=== PATIENT | female | born 1960 | race Caucasian/White ===

== ENCOUNTER 2020-10-30 15:18 | Outpatient (REF) | payer BC, SELFPAY | END 2020-10-30 15:19 | disposition home or self-care (01) | LOC: HO.LAB 15:18 | PROVIDERS: Visit Provider Internal Medicine | DX: Z20.828 Contact with and (suspected) exposure to other viral communicable diseases (principal) | CPT/HCPCS: C9803; U0003 ==

== ENCOUNTER 2023-06-03 13:06 | Outpatient (AMB) | payer BC, SELFPAY ==
--- NOTE | 2023-06-03 13:10 | AM.OFFWIN_ITS ---
Intake Vital Signs 06/03/23 13:17 Height 5 ft BP 150/78 H Blood Pressure Location Rt brachial Position Sitting Pulse 82 Pulse Source Pulse Oximeter Pulse Oximetry (%) 96 Oxygen Delivery Method Room Air Intake Visit Reasons: [employer] ?Strep Throat Intake Note: pt is here for possible strep test Patient Tobacco Use Status: Never used Tobacco Allergies No Known Allergies Allergy (Verified 06/03/23 13:16) HPI HPI Comments History of Present Illness Details 1314 62-year-old female presents with sore throat worsening over the past week not improving. Thinks she may have strep throat. Patient denies fevers, chills, chest pain, shortness of breath, nausea, vomiting, headache, vision changes, dizziness, weakness, drooling, difficulty opening mouth, ear pain, cough. No sick contacts. Physical exam significant for Tonsils w/ mild edema and erythema b/l, postnasal drip noted. Uvula midline. No exudate or abscess. Patient speaking in full sentences controlling secretions well. No mastoid tenderness. or discomfort w/ manipulation of external ears b/l. Likely strep pharyngitis versus viral pharyngitis versus allergies. Unlikely epiglottitis, peritonsillar abscess, retropharyngeal abscess, no signs of threatened airway. No signs of mastoiditis. Discharge home with amoxicillin based antibiotic, loratadine . Educated patient on diagnosis and treatment plan, answered all question, patient verbalizes understanding. At this time patient will be discharged home, advised to return with new or worsening symptoms. Educated on worrisome signs and symptoms and when to return. At this time I feel comfortable discharge home. [facility] Social History Patient Tobacco Use Status: Never used Tobacco Review of Systems Const Details: Constitutional : No Weight loss, No Fever, No Chills, No Fatigue, No Malaise ENT/Mouth : + sore throat, No Rhinorrhea Eyes: No Eye Pain, No Swelling, No Redness Cardiovascular : No Chest Pain, No SOB, No Dyspnea on Exertion, No Orthopnea, No Edema, No Palpitations Respiratory : No Cough, No Sputum, No Wheezing Gastrointestinal : No Nausea, No Vomiting, No Diarrhea, No Constipation, No abdominal Pain, No Hematochezia, No Melena Genitourinary : No Dysuria, No Urinary Frequency, No Hematuria, Musculoskeletal : No joint pain, No Myalgias, No Joint Swelling Skin : No Skin Lesions, No rash Neuro : No Weakness, No Numbness, No Dizziness, No Headache Psych : No Anxiety/Panic, No Depression All other systems reviewed and are negative All systems reviewed & are unremarkable except as noted in HPI and below Physical Exam Vital Signs: vss Appearance: Alert.? Oriented X3.? No acute distress.? Head: Normocephalic, atraumatic, no step-offs or deformities Eyes: Pupils equal, round and reactive to light.? Throat/Ears: Tonsils w/ mild edema and erythema b/l. Uvula midline. No exudate or abscess. Patient speaking in full sentences controlling secretions well. No mastoid tenderness. or discomfort w/ manipulation of external ears b/l. CVS: Normal heart rate and rhythm.? Pulses normal.? Respiratory: No respiratory distress.? Breath sounds normal.? Abdomen: Soft and nontender.? Skin: Skin warm and dry.? Normal skin color.? Normal skin turgor.? Extremities: No lower extremity edema.? No calf ttp. 5/5 strength to bilateral upper and lower extremities Neuro: Oriented X 3.? No motor deficit.? No sensory deficit. CN 2-12 intact Assessment & Plan Assessment & Plan (1) Pharyngitis: Code(s): J02.9 - Acute pharyngitis, unspecified (2) Allergies: Code(s): T78.40XA - Allergy, unspecified, initial encounter Plan Take your medications as prescribed. If you were prescribed antibiotics today, it is important that you take your medication to their entirety, do not skip any doses, do not finish them early. Follow-up with your primary care provider this week. Return to the emergency department with new or worsening symptoms. Such as fevers, chills, chest pain, shortness of breath, nausea, vomiting, dizziness, headache, vision changes, lethargy In case of emergency call 911 Medications: New amoxicillin-pot clavulanate 875-125 mg 1 tab PO BID 10 days 20 tabs 0RF loratadine (Allergy Relief (loratadine)) 10 mg PO DAILY 30 tabs 0RF Coding Level of Care Code New Pt Level 4 (32920) Diagnoses Pharyngitis J02.9 Allergies T78.40XA
[2023-06-03 13:17] VITALS: BP 150/78; PULSE 82; O2SAT 96
== END 2023-06-03 14:02 | disposition home or self-care (01) ==
PROVIDERS: PCP Internal Medicine; Visit Provider Physician Assistant
DX: J02.9 Acute pharyngitis, unspecified (principal); T78.40XA Allergy, unspecified, initial encounter; Z13.9 Encounter for screening, unspecified
CPT/HCPCS: 87880; 99204